=== PATIENT | female | born 1985 | race Caucasian/White ===

== ENCOUNTER 2022-03-28 12:16 | Inpatient (IN) | payer MEDICAID ==
[~2022-03-28] VITALS: Ht 162.6 cm; Wt 88.0 kg
[2022-03-28 12:45] VITALS: BP 103/56
[2022-03-28 13:28] LABS: APPEARANCE,URINE CLEAR (CLEAR); BILIRUBIN,URINE NEGATIVE (NEGATIVE); BLOOD, URINE NEGATIVE (NEGATIVE); COLOR,URINE YELLOW (YELLOW); LEUKOCYTE ESTERASE ,URINE TRACE (NEGATIVE); NITRITE, URINE POSITIVE (NEGATIVE); UGLUCOSE NEGATIVE (NEGATIVE)
[2022-03-28 13:31] LABS: BASOPHILS % (AUTO) 0.5 % (0.0-2.0); EOSINOPHILS % (AUTO) 0.2 % (0.0-4.0); HEMATOCRIT 37.2 % (36-48); HEMOGLOBIN 12.3 g/dL (12.0-16.0); LYMPHOCYTES # (AUTO) 1.2 K/uL (2.5-16.5); LYMPHOCYTES % (AUTO) 14.3 % (20.5-51.1); MEAN CORPUSCULAR HEMOGLOBIN 30 pg (27-31); MEAN CORPUSCULAR HGB CONC 33 g/dL (33-37); MEAN CORPUSCULAR VOLUME 89.1 fL (80-94); MONOCYTES # (AUTO) 0.6 K/uL (0.8-1.0); MONOCYTES % (AUTO) 7.1 % (1.7-9.3); NEUTROPHILS # (AUTO) 6.6 K/uL (1.8-7.7); NEUTROPHILS % (AUTO) 77.9 % (42.2-75.2); PLATELET COUNT (AUTO) 173 K/uL (140-450); RED BLOOD CELL COUNT(AUTO) 4.18 MIL/uL (4.20-5.40); RED CELL DISTRIBUTION WIDTH 13.6 % (11.6-13.7); WHITE BLOOD COUNT (AUTO) 8.5 K/uL (4.8-10.8)
[2022-03-28] MEDS ORDERED: OXYTOCIN 20 UNITS in LACTATED RINGERS 1,000 ML IV SCH (13:35)
[2022-03-28] MEDS ORDERED: METHYLERGONOVINE 0.2 MG/ML AMP IM SCH (13:35)
[2022-03-28] MEDS ORDERED: ONDANSETRON 4 MG/2 ML VIAL IVP PRN (13:35)
[2022-03-28 13:43] LABS: ALBUMIN 2.4 g/dL (3.4-5.0); ANION GAP 13.4 (8-16); CARBON DIOXIDE 24.2 mmol/L (21-32); CREATININE 0.7 mg/dL (0.6-1.3); POTASSIUM 3.6 mmol/L (3.5-5.1); TOTAL BILIRUBIN 0.2 mg/dL (0.0-1.0)
[2022-03-28] MEDS ORDERED: PNV1TABL5 PO (13:45)
[2022-03-28 13:47] LABS: RBC,URINE 0-5 /HPF (0-5); WBC,URINE 0-5 /HPF (0-5)
[2022-03-28 13:48] LABS: OTHER CASTS, URINE None Seen /LPF (None Seen); PROTHROMBIN TIME 9.7 secs (10.8-13.4)
[2022-03-28] MEDS: LACTATED RINGERS 1,000 ML IV SCH ×2 (14:55→21:18)
[2022-03-28] MEDS ORDERED: MISOPROSTOL 25 MCG TAB ONE (16:36)
[2022-03-28] MEDS ORDERED: MISOPROSTOL 25 MCG TAB VG SCH (18:00)
[2022-03-29] MEDS: LACTATED RINGERS 1,000 ML IV SCH ×2 (08:09→17:01)
--- NOTE | 2022-03-29 08:27 | NUR ---
PATIENT HAS BEEN SCREENED AND CATEGORIZED LOW NUTRITION RISK. PATIENT WILL BE SEEN WITHIN 7 DAYS OF ADMISSION. 04/04/[address]
[2022-03-29] MEDS ORDERED: NACL 0.9% 1,000 ML IV SCH (08:30)
[2022-03-29] MEDS ORDERED: OXYTOCIN 20 UNITS/LR PREMIX 1,000 ML IV ONE (10:35)
[2022-03-29] MEDS: MORPHINE SULFATE 10 MG/ML VIAL IVP PRN ×2 (18:46→23:14)
[2022-03-29 23:14] VITALS: BP 106/58
[2022-03-30] MEDS: LACTATED RINGERS 1,000 ML IV SCH (01:29)
[2022-03-30] MEDS ORDERED: BENZOCAINE/MENTHOL 20%-0.5% 60 GM CAN TP PRN (09:20)
[2022-03-30] MEDS ORDERED: METHYLERGONOVINE 0.2 MG/ML AMP IM PRN (09:20)
[2022-03-30] MEDS ORDERED: OXYTOCIN 10 UNITS/ML VIAL IM PRN (09:20)
[2022-03-30] MEDS ORDERED: METHYLERGONOVINE 0.2 MG TAB PO PRN (09:20)
[2022-03-30] MEDS ORDERED: MEASLES, MUMPS, AND RUBELLA 1 VIAL SQVAC ONE (09:20)
[2022-03-30] MEDS: IBUPROFEN 800 MG TAB PO PRN (18:26)
[2022-03-31] MEDS: IBUPROFEN 800 MG TAB PO PRN (03:39)
[2022-03-31 06:27] LABS: HEMATOCRIT 39.9 % (36-48); HEMOGLOBIN 13.1 g/dL (12.0-16.0)
== END 2022-03-31 13:20 | disposition home or self-care (01) | DRG 560 ==
LOC: OBSVTOIN 12:16 → MLD 12:16 → MFCC 03-30 09:23
PROVIDERS: ADMIT Obstetrics & Gynecology; ATTEND Obstetrics & Gynecology
PROC: 10D07Z6 Extraction of Products of Conception, Vacuum, Via Natural or Artificial Opening (ICD-10-PCS; principal; 2022-03-29)
PROC: 3E033VJ Introduction of Other Hormone into Peripheral Vein, Percutaneous Approach (ICD-10-PCS; 2022-03-29)
DX: O41.03X0 Oligohydramnios, third trimester, not applicable or unspecified (principal); Z37.0 Single live birth; O24.420 Gestational diabetes mellitus in childbirth, diet controlled; Z20.822 Contact with and (suspected) exposure to COVID-19; Z3A.37 37 weeks gestation of pregnancy; Z82.49 Family history of ischemic heart disease and other diseases of the circulatory system; Z83.3 Family history of diabetes mellitus
CPT/HCPCS: 36415; 59200; 76815; 80053; 81001; 85018; 85025; 85610; 85730; 86592; 86886; 86900; 86901; J0696; J2270; J2405; J2590; J7060; Q0092

== ENCOUNTER 2024-02-16 12:52 | Emergency (ER) | payer MEDICAID, OTHER ==
[~2024-02-16] VITALS: Ht 162.6 cm; Wt 75.3 kg
[~2024-02-16 12:52] MED LIST: PNV1TABL5 PO
[2024-02-16 13:09] VITALS: BP 104/64; PULSE 97; RESP 18; TEMP 97.8; O2SAT 98
[2024-02-16] MEDS: KETOROLAC 30 MG/ML VIAL IM ONE (14:31)
[2024-02-16 14:59] LABS: APPEARANCE,URINE CLEAR (CLEAR); BILIRUBIN,URINE NEGATIVE (NEGATIVE); BLOOD, URINE NEGATIVE (NEGATIVE); COLOR,URINE YELLOW (YELLOW); LEUKOCYTE ESTERASE ,URINE NEGATIVE (NEGATIVE); NITRITE, URINE NEGATIVE (NEGATIVE); PROTEIN,URINE NEGATIVE (NEGATIVE); UGLUCOSE NEGATIVE (NEGATIVE); UROBILINOGEN,URINE 0.2 EU/dL (0.2 - 1)
[2024-02-16] MEDS ORDERED: NITR100C7 PO (15:31)
== END 2024-02-16 15:45 | disposition home or self-care (01) ==
LOC: MED 12:52
DX: N39.0 Urinary tract infection, site not specified (principal); Z79.899 Other long term (current) drug therapy
CPT/HCPCS: 76856; 81003; 81025; 96372; 99285; J1885; Q0092